=== PATIENT | female | born 1995 | race Caucasian/White ===

== ENCOUNTER 2021-12-18 19:25 | Emergency (ER) | payer MEDICAID ==
[~2021-12-18] VITALS: Ht 154.9 cm; Wt 83.6 kg
[~2021-12-18 19:25] MED LIST: PREN-88 PO
[2021-12-18 20:08] VITALS: BP 128/61
[2021-12-18] MEDS ORDERED: ACETAMINOPHEN 325MG TABLET PO ONE (22:15)
[2021-12-18] MEDS ORDERED: ACET-2708 MT (23:20)
== END 2021-12-18 23:58 | disposition home or self-care (01) ==
LOC: ER 19:25
DX: S93.491A Sprain of other ligament of right ankle, initial encounter (principal); Z98.890 Other specified postprocedural states; W01.0XXA Fall on same level from slipping, tripping and stumbling without subsequent striking against object, initial encounter; Y93.89 Activity, other specified; Y92.018 Other place in single-family (private) house as the place of occurrence of the external cause
CPT/HCPCS: 73610; 99283